=== PATIENT | male | born 2005 | race Caucasian/White ===

== ENCOUNTER → 2024-09-29 | Outpatient (CLI) | payer BC, SELFPAY ==
--- NOTE | 2024-09-29 09:30 | XR_ITS ---
Examination: CT abdomen with intravenous contrast CT pelvis with intravenous contrast 2-D coronal reconstructions 2-D sagittal reconstructions Date and time of exam:September 29, 2024 1116 hours INDICATIONS: Left testicular lump and hematuria episodes 18 months. CTDI: vol (mGy) 15.2 DLP: (mGycm) 873 Technique: Multiple axial sections of the abdomen and pelvis have been obtained. 64 slice high-resolution scanner used. 3 mm axial sections have been obtained, post intravenous injection 60 cc [id number] 2-D sagittal, coronal reconstructions obtained. Low dose protocols were performed. One or more of the following dose reduction techniques were used; automated exposure control, adjustment of the mA and/or KV according to patient size, use of iterative reconstruction technique. Findings: No focal liver or splenic lesions No gallstones No pancreatic or adrenal mass No renal or ureteral calculi, no hydronephrosis Aorta normal size Normal appendix No bowel obstruction No diverticulitis Intact urinary bladder No prostatomegaly IMPRESSION: No renal or ureteral calculi, no hydronephrosis No bladder mass or bladder calculi Consider testicular sonography follow-up
== END | disposition home or self-care (01) ==
PROVIDERS: PCP Family Medicine; Referring Provider Urology; Visit Provider Urology
DX: R31.1 Benign essential microscopic hematuria (principal)
CPT/HCPCS: 74177; A4649; Q9967

== ENCOUNTER → 2024-11-03 | Outpatient (CLI) | payer BC, SELFPAY ==
--- NOTE | 2024-11-03 16:00 | XR_ITS ---
Examination: Testicular sonography complete TECHNIQUE: Grayscale sonographic images testes, assessment arterial inflow venous outflow Doppler spectral analysis carful analysis Exam date and time: November 03, 2024 1550 hours INDICATIONS: Left testicular pain and unable to control urination beginning 4 years ago FINDINGS: Right testis 4.6 x 2.2 x 3.8 cm Epididymis 17 mm Arterial flow testicle No testicular mass Left testis 4.2 x 2.1 x 3.2 cm Epididymis 9 mm Arterial flow testicle. No testicular mass Mild hydrocele IMPRESSION: No testicular torsion or testicular mass Mild left hydrocele
== END | disposition home or self-care (01) ==
LOC: CDIM 15:30
PROVIDERS: Referring Provider Urology; Visit Provider Urology
DX: N43.3 Hydrocele, unspecified (principal)
CPT/HCPCS: 76870

== ENCOUNTER → 2025-03-19 | Outpatient (BNVA) | payer BC, SELFPAY | END | disposition home or self-care (01) | PROVIDERS: PCP Family Medicine; Referring Provider Family Medicine; Visit Provider Urology | DX: N40.0 Benign prostatic hyperplasia without lower urinary tract symptoms (principal); N43.3 Hydrocele, unspecified; F17.290 Nicotine dependence, other tobacco product, uncomplicated | CPT/HCPCS: 81003; 99212; G0463 ==